=== PATIENT | male | born 1995 | race Caucasian/White ===

== ENCOUNTER 2024-06-20 02:11 | Inpatient (IN) | payer OTHER, SELFPAY ==
[2024-06-20] MEDS ORDERED: Famotidine/PF 20 mg/2ml Vial ONE ×2 (02:28→12:35)
[2024-06-20] MEDS ORDERED: Ketorolac Tromethamine 30 MG (1 mL) VIAL ONE ×2 (02:28→13:29)
[2024-06-20 02:54] LABS: ALT (SGPT) 10 U/L (Less than 45); AST (SGOT) 18 U/L (11-34); Albumin 4.4 g/dL (3.1-4.5); Alkaline Phosphatase 101 U/L (40-110); Anion Gap 14 mmol/L (10-20); BUN (Urea Nitrogen) 14 mg/dL (8.9-20.6); Bilirubin, Total 0.6 mg/dL (0.3-1.2); Calc. Creatinine Clearance 0 mL/min (70-130); Calcium 9.7 mg/dL (7.8-10.44); Carbon Dioxide 22 mmol/L (22-29); Chloride 107 mmol/L (98-107); Estimated GFR 102; Glucose 100 mg/dL (70-105); Hematocrit 44.2 % (42.0-52.0); Hemoglobin 15.1 g/dL (14.0-18.0); Lipase 19 U/L (8-78); Mean Corpuscular HGB CONC 34.2 g/dL (32.0-36.0); Mean Corpuscular Hemoglobin 27.9 pg (27.0-31.0); Mean Corpuscular Volume 81.7 fL (78.0-98.0); Mean Platelet Volume 11.6 fL (7.4-10.4); Platelet Count 192 10x3/uL (130-400); Potassium 3.4 mmol/L (3.5-5.1); Protein, Total 7.4 g/dL (6.0-8.3); RBC Distribution Width 13.4 % (11.5-14.5); Red Blood Cell (RBC) Count 5.41 mill/uL (4.70-6.10); Sodium 140 mmol/L (136-145)
[2024-06-20 04:08] LABS: Anisocytosis SLIGHT = 6-15 cells HPF (0-5); Band 3 % (5-11); Eosinophils 2 % (0-10); Lymphocytes 10 % (21-51); Macrocytosis SLIGHT = 6-15 cells HPF (0-5); Monocytes 2 % (0-10); Neutrophil 83 % (42-75); Platelet Adequacy Comment Platelets Decreased; Polychromasia SLIGHT = 2-3 cells HPF (0-2); RBC Morphology Within Normal Limits
[2024-06-20] MEDS ORDERED: Piperacillin/Tazobactam 4.5 GM VIAL ONE (04:10)
[2024-06-20] MEDS ORDERED: Dextrose 50% Abboject 50 ML SYRINGE SLOW IVP PRN ×2 (05:36→13:59)
[2024-06-20] MEDS ORDERED: Acetaminophen 325 MG TAB PO PRN (05:36)
[2024-06-20] MEDS ORDERED: Dextrose 5% in Water 1,000 ML IV PRN ×2 (05:36→13:59)
[2024-06-20] MEDS ORDERED: Glucagon 1 MG/ML KIT IM PRN ×2 (05:36→13:59)
[2024-06-20] MEDS ORDERED: Morphine 4 MG/ML VIAL SLOW IVP PRN (05:36)
[2024-06-20] MEDS ORDERED: Promethazine HCl 25 MG/ML VIAL IM PRN ×2 (05:36→13:11)
[2024-06-20] MEDS ORDERED: Ondansetron PF 4 MG/2 ML Vial IVP PRN ×2 (05:36→13:59)
[2024-06-20] MEDS ORDERED: HYDROcodone/Acetaminophen 7.5/325 mg Tablet PO PRN (05:38)
[2024-06-20 05:49] VITALS: BMI 27.2
[2024-06-20] MEDS: Lactated Ringer's 1,000 ML IV SCH (06:07)
[2024-06-20] MEDS: Piperacillin/Tazobactam 3.375 GM in Sodium Chloride 0.9% 100 ML IVPB SCH (08:33)
[2024-06-20] MEDS ORDERED: Bupivacaine 0.25% HCL 30 ML VIAL ONE (12:09)
[2024-06-20] MEDS ORDERED: EPINEPHrine 1 MG/ML VIAL ONE (12:09)
[2024-06-20] MEDS ORDERED: fentaNYL PF 100 MCG/2 ML SYRINGE ONE (12:18)
[2024-06-20] MEDS ORDERED: PROPOFOL 20 ML ONE (12:18)
[2024-06-20] MEDS ORDERED: Ondansetron PF 4 MG/2 ML Vial ONE (12:20)
[2024-06-20] MEDS ORDERED: Dexamethasone 4 mg/ml Vial ONE ×2 (12:20→13:28)
[2024-06-20] MEDS ORDERED: Rocuronium Bromide 10 MG/ML (10ML VIAL) ONE (12:20)
[2024-06-20] MEDS ORDERED: SUCCINYLCHOLINE/SOD CL,ISO/PF 200 MG/10 ML SYRINGE FS ONE (12:20)
[2024-06-20] MEDS ORDERED: Midazolam HCl 2 mg/2 ml Vial ONE (12:35)
[2024-06-20] MEDS ORDERED: Lidocaine 2% PF 5 ML VIAL ONE (12:56)
[2024-06-20] MEDS ORDERED: ePHEDrine Sulfate 50 MG/10 ML VIAL ONE (12:57)
[2024-06-20] MEDS ORDERED: PHENYLEPHRINE-NS 100 MCG/ML 10 ML SYRINGE ONE (12:57)
[2024-06-20] MEDS ORDERED: Ondansetron HCl/PF 4 MG/2 ML Vial IVP PRN (13:11)
[2024-06-20] MEDS ORDERED: Meperidine HCl/PF 25 MG/ML VIAL SLOW IVP PRN (13:11)
[2024-06-20] MEDS ORDERED: SUGAMMADEX SODIUM 200 MG/2 ML VIAL ONE (13:15)
[2024-06-20] MEDS ORDERED: Dexmedetomidine 200 MCG/2 ML VIAL ONE (13:40)
[2024-06-20] MEDS ORDERED: Iopamidol 370 76% 100 ML VIAL ONE (13:50)
[2024-06-20] MEDS ORDERED: Calcium Carbonate 500 MG ChewTAB PO PRN (13:59)
[2024-06-20] MEDS: Midazolam HCl 2 mg/2 ml Vial SLOW IVP SCH (14:44)
[2024-06-20] MEDS: NACL IVPB SCH (16:11)
[2024-06-20] MEDS: DEXTROSE IVPB SCH (16:11)
[2024-06-20] MEDS: ADMIXTURE FEE IVPB SCH (16:11)
[2024-06-20] MEDS: POTASSIUM CHLORIDE IVPB SCH (16:11)
[2024-06-20] MEDS: D5 1/2 NS w/20 mEq KCL 1,000 ML IV SCH (16:15)
[2024-06-20] MEDS: Ketorolac Tromethamine 30 MG (1 mL) VIAL IVP SCH (18:13)
[2024-06-20] MEDS: Famotidine 20 MG TAB PO SCH (20:17)
[2024-06-20] MEDS: Docusate 100 MG CAP PO SCH (20:18)
[2024-06-21 05:36] VITALS: BP 108/56; TEMP 97.8
[2024-06-21 06:32] LABS: #Basophils 0.03 10x3/uL (0.0-0.2); #Eosinophils Less than 0.03 10x3/uL (0.0-0.7); %Basophils 0.2 % (0.0-1.0); %Lymphocytes 8.3 % (21.0-51.0); %Monocytes 6.6 % (0.0-10.0); %Neutrophils 82.8 % (42.0-75.0); Hematocrit 39.4 % (42.0-52.0); Hemoglobin 13.1 g/dL (14.0-18.0); Mean Corpuscular HGB CONC 33.2 g/dL (32.0-36.0); Mean Corpuscular Hemoglobin 28.1 pg (27.0-31.0); Mean Corpuscular Volume 84.5 fL (78.0-98.0); Mean Platelet Volume 12.9 fL (7.4-10.4); Platelet Count 177 10x3/uL (130-400); RBC Distribution Width 13.6 % (11.5-14.5); Red Blood Cell (RBC) Count 4.66 mill/uL (4.70-6.10)
[2024-06-21 07:13] LABS: Anion Gap 9 mmol/L (10-20); BUN (Urea Nitrogen) 14 mg/dL (8.9-20.6); Calc. Creatinine Clearance 154 mL/min (70-130); Calcium 8.3 mg/dL (7.8-10.44); Carbon Dioxide 23 mmol/L (22-29); Chloride 111 mmol/L (98-107); Estimated GFR 121; Glucose 135 mg/dL (70-105); Potassium 3.8 mmol/L (3.5-5.1); Sodium 139 mmol/L (136-145)
[2024-06-21] MEDS: Piperacillin/Tazobactam 3.375 GM in Sodium Chloride 0.9% 100 ML IVPB SCH (09:35)
[2024-06-21] MEDS ORDERED: Benzocaine/Menthol 1 LOZ LOZ PO PRN (10:01)
== END 2024-06-21 13:30 | disposition home or self-care (01) | DRG 399 ==
LOC: ERS 02:11 → SURG A 05:39 → OBSVTOIN 13:59
PROVIDERS: ADMIT Surgery; ATTEND Surgery
PROC: 0DTJ4ZZ Resection of Appendix, Percutaneous Endoscopic Approach (ICD-10-PCS; principal; 2024-06-20)
DX: K35.80 Unspecified acute appendicitis (principal); I10 Essential (primary) hypertension; E78.5 Hyperlipidemia, unspecified; Z88.5 Allergy status to narcotic agent; Z88.8 Allergy status to other drugs, medicaments and biological substances
CPT/HCPCS: 36415; 36416; 74177; 76705; 80048; 80053; 83690; 85025; 88304; 93005; 96361; 96365; 96375; 96376; G0378; J0171; J0665; J1100; J1885; J2250; J2405; J2543; J2704; J3480; J3490; J7042; J7120; Q9967